=== PATIENT | female | born 1985 | race Two or more races ===

== ENCOUNTER 2018-06-24 05:51 | Inpatient (IN) ==
[2018-06-24] MEDS ORDERED: ceFAZolin 2 GM Premix Inj 2 GM/50 ML PIGGYBACK IV.SIG PRN (06:29)
--- NOTE | 2018-06-24 06:29 | P.HPOB ---
Addendum entered and electronically signed by Christina Mccoy DO 05/29/18 13:23 : RLTCS with BTL scheduled 06/24/18 Original Note: History of Present Illness Service: [facility] Requesting Physician: Enid Llamas Reason for Consult: Previous LTCS, requests repeat Primary Care Physician: No Primary Care Physician Enid Llamas ARNP Chief Complaint: Previous LTCS History of Present Illness: This 32 y/o female , EGA 39 wks presents for Repeat c section BTL. She has hx of c section x 1 for arrested descent. She denies probs with this . She also requests tubal ligation. Weeks Gestation:: 3 9 Para: 1 : 3 Total # of Miscarriage(s): 1 Review of Systems All other systems reviewed negative except as stated in HPI PMFSH - Medical / Surgical Hx Neg / Unobtainable Medical Problems Denied: Yes - Surgical History Surgical History: Surgical History (Last Updated 05/29/18 @ 13:15 by Christina Mccoy DO) H/O dilation and curettage Hx of section - Tobacco History Smoking Status: Never smoker - Alcohol History How Often Do You Have a Drink Containing Alcohol: Never - Substance Use History Substance History: No History of Abuse - Travel History History of Recent Travel: No Recent Travel in the [place] Within the Last 8 Weeks: No Recent Travel Out of the Country Within the Last 8 Weeks: No Medications and Allergies Home Medications Medication Instructions Recorded Confirmed Type PO DAILY 05/29/18 History Exam Narrative: GENERAL: Well-nourished, well-developed patient. SKIN: Warm and dry. HEAD: Normocephalic and atraumatic. EYES: No scleral icterus. No injection or drainage. ENT: No nasal drainage noted. Mucous membranes pink. Airway patent. NECK: Supple, trachea midline. No JVD. CARDIOVASCULAR: Regular rate and rhythm without murmurs, gallops, or rubs. RESPIRATORY: Breath sounds equal bilaterally. No accessory muscle use. BREASTS: Bilateral exam showed no masses , no retractions, no nipple discharge. ABDOMEN/GI: Abdomen soft, non-tender, bowel sounds present, no rebound, no guarding Gravid to [3 9] weeks size GENITOURINARY: Membranes: [intact] Uterine Contractions: [none] FHT's: Not performed today Category: [1-] Baseline: [-133] Reactive: [R-] Variability: [mod-] Decels: [0-] EXTREMITIES: No cyanosis or edema. BACK: Nontender without obvious deformity. No CVA tenderness. NEUROLOGICAL: Awake and alert. Motor and sensory grossly within normal limits. Five out of 5 muscle strength in all muscle groups. Normal speech. Assessment and Plan - Diagnosis (1) Previous section Code(s): Z98.891 - History of uterine scar from previous surgery Status: Acute (2) 39 weeks gestation of Code(s): Z3A.35 - 35 weeks gestation of Status: Acute - Plan Discussed risks of RLTCS with BTL with pt including but not limited to bleeding , infection, bowel, bladder or vessel injury, permanence of tubal ligation and failure rate of 3-10/999. She understands and wishes to schedule. RLTCS with BTL scheduled 06/24/17 at 12:30 PM. Consent reviewed and signed. Discharge Planning: F/u at regularly scheduled OB visit. Labor Prec.
[2018-06-24] MEDS ORDERED: Citric Acid/Sodium Citrate Liq 30 ML UDC PO SCH (06:30)
[2018-06-24 06:56] LABS: Baso % (Auto) 0.2 % (0.0-2.0); Eos # (Auto) 0.1 th/mm3 (0.0-0.4); Eos % (Auto) 0.6 % (0.0-4.0); Hemoglobin 12.6 gm/dL (11.6-15.3); Lymph # (Auto) 2.2 th/mm3 (1.0-4.8); Lymph % (Auto) 25.3 % (9.0-44.0); Mean Corpuscular HGB Conc 34.1 % (32.0-36.0); Mean Corpuscular Volume 93.7 fL (80.0-100.0); Mean Platelet Volume 7.6 fL (7.0-11.0); Mono # (Auto) 0.5 th/mm3 (0.0-0.9); Mono % (Auto) 5.7 % (0.0-8.0); Neut # (Auto) 5.9 th/mm3 (1.8-7.7); Neut % (Auto) 68.2 % (16.0-70.0); Platelet Count 265 th/mm3 (150-450); Red Blood Count 3.95 mil/mm3 (4.00-5.30); Red Cell Distribution Width 14.6 % (11.6-17.2); White Blood Count 8.7 th/mm3 (4.0-11.0)
[2018-06-24] MEDS ORDERED: Morphine Sulfate PF Inj 5 MG/10 ML Ampul ONE (08:04)
[2018-06-24] MEDS ORDERED: Influenza (Quadrivalent) Vaccine 0.5 ML Syringe IM ONE (10:00)
[2018-06-24 10:07] LABS: Bacteria,Urine Occasional /hpf; Bilirubin,Urine Negative (Negative); Clarity,Urine Hazy (Clear); Color,Urine Amber (Yellw/Straw); Glucose,Urine (UA) Negative (Negative); Hyaline Casts,Urine 1 /lpf (0-3); Leukocyte Esterase,Urine Moderate (Negative); Mucus,Urine Many /lpf (Occasional); Nitrite,Urine Negative (Negative); Specific Gravity,Urine 1.026 (1.002-1.035); Squamous Epithelial Cell,Urine 10 /hpf (0-5)
[2018-06-24 10:15] LABS: Urobilinogen,Urine 0.2 mg/dL (Less than 2)
--- NOTE | 2018-06-24 10:18 | P.OP ---
- Preoperative Diagnosis (1) Previous section (2) 39 weeks gestation of - Postoperative Diagnosis (1) Previous section complicating , with delivery (2) 39 weeks gestation of Date of procedure: 06/24/18 (Patient is 39-week intrauterine previous for repeat and tubal ligation tubal papers signed patient understands risk and benefits procedure she would like her tubes tied and understands that there is a 1 and 300 failure rate that procedure) Procedure: Repeat low transverse section bilateral tubal ligation Eleele style Anesthesia: spinal Surgeon: Rafael Hamlin MD Hooker Inspector: Isabel De Anda R2 Estimated blood loss (mL): 500 IV fluids (mL): 1,000 Urine output (mL): 100 Operation and Findings: Patient taken to the operating room placed supine position operating table adequate spinal anesthesia is prepped draped for abdominal surgery. A previous Pfannenstiel incision was excised out cast off. Incision carried to the fascia sharply and the fascia dissected laterally off the rectus muscle. The parietal peritoneum opened the incision extended superior and inferiorly with care used to avoid bladder injury. The bladder placed on the bladder blade and the visceral peritoneum reflected off the lower uterine segment placed on a bladder blade well. The transverse hysterotomy states in the bluntly bilaterally and a female was delivered at 8:41 AM Apgars 8/9 weight 3760gm there were no complications. Delayed cord clamping done. Cord blood obtained. Placenta manually extracted without difficulty. The uterus exteriorized and the hysterotomy closed running layer 0 chromic followed by I am getting suture same. Hemostasis achieved with stick tie. Bladder tack back up in a running suture of 2-0 Vicryl. The uterus elevated blood suctioned the cul-de-sac gutters. Bruce Placed on the right fallopian tube and avascular window seen in the mesosalpinx. A hemostat passed through and 2 sutures of catgut pulled through the window and the tube tied forward and a half with out difficulty. The intervening segment was excised and sent to pathology. Hemostasis achieved. Same was done on the left side without difficulty. The tube was ligated in the above-mentioned fashion. Hemostasis was achieved. Uterus replaced the peritoneal cavity. The parietal peritoneum was grasped with hemostats the gutters were visualized and noted to be hemostatic. The parietal peritoneum closed running layer 2-0 Vicryl. Rectus muscle reapproximated with stick ties of chromic and Vicryl. Fascia closed in running layer of 0 Vicryl. Status was achieved wash were used to irrigate well. And the space and deep tissues closed in a running layer of 3-0 plain catgut suture. Skin closed with a 3-0 Monocryl running subcuticular stitch. This may blood loss was 500 cc of no complication ,sponge and needle count correct x2 and the baby to recovery with mother and doing well.
[2018-06-24] MEDS ORDERED: Oxytocin 30 Units/500ml Premix 30 UNITS/500 ML BAG ONE (10:23)
[2018-06-24] MEDS ORDERED: Oxytocin 30 Units/500ml Premix 30 UNITS/500 ML BAG IV.SIG ONE (11:00)
[2018-06-24] MEDS ORDERED: Naloxone Inj 0.4 MG/ML Vial IV.PUSH PRN (11:23)
[2018-06-24] MEDS: Senna/Docusate Sodium 8.6/50 MG Tablet PO SCH ×2 (11:38→23:50)
[2018-06-24] MEDS ORDERED: Oxytocin 30 Units/500ml Premix 30 UNITS/500 ML BAG IV.SIG PRN (14:44)
[2018-06-24] MEDS ORDERED: ceFAZolin 2 GM Premix Inj 2 GM/50 ML PIGGYBACK IV.SIG SCH (16:00)
[2018-06-24] MEDS: ceFAZolin 2 GM Premix Inj 2 GM/50 ML PIGGYBACK IV.SIG SCH (20:23)
[2018-06-25] MEDS: ceFAZolin 2 GM Premix Inj 2 GM/50 ML PIGGYBACK IV.SIG SCH (04:09)
[2018-06-25 06:26] LABS: Baso % (Auto) 0.2 % (0.0-2.0); Eos % (Auto) 0.2 % (0.0-4.0); Hematocrit 28.8 % (35.0-46.0); Hemoglobin 9.7 gm/dL (11.6-15.3); Lymph # (Auto) 1.7 th/mm3 (1.0-4.8); Lymph % (Auto) 12.5 % (9.0-44.0); Mean Corpuscular HGB Conc 33.5 % (32.0-36.0); Mean Corpuscular Hemoglobin 31.6 pg (27.0-34.0); Mean Corpuscular Volume 94.2 fL (80.0-100.0); Mean Platelet Volume 7.4 fL (7.0-11.0); Mono # (Auto) 0.7 th/mm3 (0.0-0.9); Mono % (Auto) 5.1 % (0.0-8.0); Neut # (Auto) 11.4 th/mm3 (1.8-7.7); Platelet Count 218 th/mm3 (150-450); Red Blood Count 3.06 mil/mm3 (4.00-5.30); White Blood Count 13.9 th/mm3 (4.0-11.0)
--- NOTE | 2018-06-25 08:27 | P.PNOB ---
Subjective Post op day: 1 Interval history: Patient seen and examined bedside this morning. Patient doing well with no acute complaints overnight. Denies any chest pain/shortness of breath/ dizziness. No nausea/vomiting with clear fluids. Patient is hungry and will advance to full diet this morning. Nichols has been removed and patient has urinated twice with no difficulties. No fever/chills. No calf tenderness. Objective Vital Signs/I&O: Vital Signs 06/24/18 09:45 06/24/18 10:00 06/24/18 10:15 Temperature 97.6 F Pulse Rate 18 L 97 H 89 Respiratory Rate 8 L 18 20 Blood Pressure 113/66 125/58 L 111/55 L 06/24/18 10:30 06/24/18 10:45 06/24/18 16:00 Temperature 97.8 F 98.5 F Pulse Rate 85 88 113 H Respiratory Rate 20 20 18 Blood Pressure 122/56 L 112/54 L 125/73 06/24/18 20:00 06/24/18 23:54 06/25/18 03:49 Temperature 98.8 F 98.1 F 98.3 F Pulse Rate 90 102 H 90 Respiratory Rate 18 18 18 Blood Pressure 114/75 110/69 101/64 Intake & Output 06/24/18 06/25/18 06/25/18 18:59 06:59 18:59 Intake Total 1050 / 1050 50 / 50 Balance 1050 / 1050 50 / 50 Weight 77.111 kg Intake: IV 1050 / 1050 50 / 50 LR 1000 mL Inj 1,000 ML @ 150 1000 / 1000 mls/hr IV.CONT .Q6H40M [facility] Rx#: [id number] Ancef 2 GM Premix Inj 2 gm In 50 / 50 50 / 50 50 ml @ 100 mls/hr IV.SIG Q8H [facility] Rx#:[id number] Other: Weight On Admission 77.111 kg Result Diagrams: 06/25/18 06:06 Objective Remarks: GENERAL: Well-nourished, well-developed patient. CARDIOVASCULAR: Regular rate and rhythm without murmurs, gallops, or rubs. RESPIRATORY: Breath sounds equal bilaterally. No accessory muscle use. ABDOMEN/GI: Abdomen soft, non-tender, bowel sounds present. Incision: Clean, dry and intact. dressing in place, no drainage. Fundus: Firm, non-tender at umbilicus. GENITOURINARY: Light to moderate bleeding. EXTREMITIES: No cyanosis or edema, non-tender, without signs of DVT. Medications and IVs: Active Medications Citric Acid/Sodium Citrate (Sodium Citrate/Citric Acid Liq) 30 ml PO MACHINERY MECHANIC TYLER Stop: 06/28/18 06:29 Diphenhydramine HCl (Benadryl Inj) 25 mg IV.PUSH Q6H PRN PRN Reason: MILD TO MODERATE ITCHING Stop: 06/25/18 11:22 Diphenhydramine HCl (Benadryl) 50 mg PO Q6H PRN PRN Reason: MILD TO MODERATE ITCHING Stop: 06/25/18 11:22 Diphtheria/Pertussis/Tetanus Vacc (Boostrix Vaccine Inj) 0.5 ml IM .ONCE ONE Stop: 06/25/18 16:01 Cefazolin Sodium/Dextrose (Ancef 2 Gm Premix Inj) 2 gm in 50 mls @ 100 mls/hr IV.SIG MACHINERY MECHANIC PRN PRN Reason: ON-CALL Stop: 06/28/18 06:28 Last Infusion: 06/24/18 09:56 Dose: Infused Lactated Ringer's (Lr 1000 Ml Inj) 1,000 mls @ 100 mls/hr IV.CONT .Q10H TYLER Stop: 06/25/18 10:43 Last Admin: 06/24/18 19:52 Dose: 100 mls/hr Oxytocin (Pitocin 30 Units/Ns 500 Ml Premix) 30 units in 500 mls @ 100 mls/hr IV.SIG UNSCH PRN PRN Reason: Heavy bleeding Ibuprofen (Motrin) 800 mg PO Q8H PRN PRN Reason: cramping Last Admin: 06/25/18 01:30 Dose: 800 mg Ketorolac Tromethamine (Toradol Inj) 30 mg IM Q6H PRN PRN Reason: SEE LABEL COMMENTS Stop: 06/29/18 10:29 Last Admin: 06/24/18 18:23 Dose: 30 mg Measles/Mumps/Rubella Vaccine Live (M-M-R Ii Vaccine Inj) 0.5 ml SQ .ONCE ONE Stop: 06/25/18 16:01 Miscellaneous Information ([facility] Nursing Information) 1 each OTHER UNSCH PRN PRN Reason: SEE LABEL COMMENTS Stop: 06/25/18 11:22 Miscellaneous Information ([facility] Nursing Information) 1 each OTHER UNSCH PRN PRN Reason: SEE LABEL COMMENTS Stop: 06/25/18 11:22 Naloxone HCl (Narcan Inj) 0.4 mg IV.PUSH UNSCH PRN PRN Reason: SEE LABEL COMMENTS Stop: 06/25/18 11:22 Ondansetron HCl (Zofran Inj) 4 mg IV.PUSH Q6H PRN PRN Reason: NAUSEA OR VOMITING Oxycodone/Acetaminophen (Percocet 5/325 Mg) 1 tab PO Q4H PRN PRN Reason: PAIN SCALE 3 TO 5 Last Admin: 06/24/18 23:50 Dose: 1 tab Oxycodone/Acetaminophen (Percocet 5/325 Mg) 2 tab PO Q4H PRN PRN Reason: PAIN SCALE 6 TO 10 Last Admin: 06/25/18 04:07 Dose: 2 tab Senna/Docusate Sodium (Alie-Colace) 2 tab PO Q12H [facility]YLER Last Admin: 06/24/18 23:50 Dose: 2 tab Sodium Chloride (Ns Flush) 2 ml IV.FLUSH BID [facility] Last Admin: 06/24/18 21:00 Dose: Not Given Sodium Chloride (Ns Flush) 2 ml IV.FLUSH PRN PRN PRN Reason: FLUSH AFTER USING IV ACCESS Assessment and Plan - Diagnosis (1) delivery delivered Code(s): O82 - Encounter for delivery without indication Status: Acute - Plan Patient was counseled to do 6 weeks of pelvic rest. Patient was counseled to follow up in 6 weeks. Patient requested follow-up. -- VSS -- H&H stable, asymptomatic -- WBC stable, asymptomatic --Continue routine care --Motrin and Percocet when necessary for pain --Encourage OOB --Pelvic rest for 6 weeks will need follow-up appointment at that time. --Contraception: s/p BTL --Anticipate discharge tomorrow - Attending Attestation The exam, history, and the medical decision-making described in the above note were completed with the assistance of the resident physician. I reviewed and agree with the findings presented. I attest that I had a [id number] encounter with the patient on the same day, and personally performed and documented my assessment and findings in the medical record.
[2018-06-25] MEDS: Senna/Docusate Sodium 8.6/50 MG Tablet PO SCH ×2 (10:25→22:30)
[2018-06-25] MEDS ORDERED: Diphtheria/Tetanus/Pertussis Vaccine Inj 0.5 ML Syringe IM ONE (16:00)
[2018-06-25] MEDS ORDERED: Measles/Mumps/Rubella Vaccine Inj 0.5 ML Vial SQ ONE (16:00)
--- NOTE | 2018-06-26 08:19 | P.PNOB ---
Subjective Post op day: 2 Interval history: Patient seen and examined bedside this morning. Patient doing well with no acute complaints overnight. Minimal lochia. Denies any chest pain/shortness of breath/dizziness. No nausea/vomiting. No fever/chills. No calf tenderness. Eating and drinking without difficulty and ambulating appropriately. Planning on . Objective Vital Signs/I&O: Vital Signs 06/25/18 09:15 06/25/18 20:00 Temperature 98.3 F Pulse Rate 74 Respiratory Rate 5 L 18 Blood Pressure 113/76 Result Diagrams: 06/25/18 06:06 Objective Remarks: GENERAL: Well-nourished, well-developed patient. CARDIOVASCULAR: Regular rate and rhythm without murmurs, gallops, or rubs. RESPIRATORY: Breath sounds equal bilaterally. No accessory muscle use. ABDOMEN/GI: Abdomen soft, non-tender, bowel sounds present. Incision: Clean, dry and intact. Fundus: Firm, non-tender at umbilicus. GENITOURINARY: Light to moderate bleeding. EXTREMITIES: No cyanosis or edema, non-tender, without signs of DVT. Medications and IVs: Active Medications Citric Acid/Sodium Citrate (Sodium Citrate/Citric Acid Liq) 30 ml PO TELEPHONE INSTRUMENT SUPERVISOR TYLER Stop: 06/28/18 06:29 Cefazolin Sodium/Dextrose (Ancef 2 Gm Premix Inj) 2 gm in 50 mls @ 100 mls/hr IV.SIG TELEPHONE INSTRUMENT SUPERVISOR PRN PRN Reason: ON-CALL Stop: 06/28/18 06:28 Last Infusion: 06/24/18 09:56 Dose: Infused Oxytocin (Pitocin 30 Units/Ns 500 Ml Premix) 30 units in 500 mls @ 100 mls/hr IV.SIG UNSCH PRN PRN Reason: Heavy bleeding Ibuprofen (Motrin) 800 mg PO Q8H PRN PRN Reason: cramping Last Admin: 06/26/18 04:26 Dose: 800 mg Ketorolac Tromethamine (Toradol Inj) 30 mg IM Q6H PRN PRN Reason: SEE LABEL COMMENTS Stop: 06/29/18 10:29 Last Admin: 06/24/18 18:23 Dose: 30 mg Ondansetron HCl (Zofran Inj) 4 mg IV.PUSH Q6H PRN PRN Reason: NAUSEA OR VOMITING Oxycodone/Acetaminophen (Percocet 5/325 Mg) 1 tab PO Q4H PRN PRN Reason: PAIN SCALE 3 TO 5 Last Admin: 06/24/18 23:50 Dose: 1 tab Oxycodone/Acetaminophen (Percocet 5/325 Mg) 2 tab PO Q4H PRN PRN Reason: PAIN SCALE 6 TO 10 Last Admin: 06/26/18 07:38 Dose: 2 tab Senna/Docusate Sodium (Alie-Colace) 2 tab PO Q12H [facility] Last Admin: 06/25/18 22:30 Dose: 2 tab Sodium Chloride (Ns Flush) 2 ml IV.FLUSH BID [facility] Last Admin: 06/25/18 22:42 Dose: Not Given Sodium Chloride (Ns Flush) 2 ml IV.FLUSH PRN PRN PRN Reason: FLUSH AFTER USING IV ACCESS Assessment and Plan - Diagnosis (1) delivery delivered Code(s): O82 - Encounter for delivery without indication Status: Acute - Plan Patient was counseled to do 6 weeks of pelvic rest. Patient was counseled to follow up in 6 weeks for post check and 1 week for incision check. Patient requested follow-up. -- VSS --Continue routine care --Motrin and Percocet when necessary for pain --Encourage OOB --Pelvic rest for 6 weeks will need follow-up appointment at that time. --Contraception: s/p BTL --Anticipate discharge possibly today or tomorrow
[2018-06-26 09:17] VITALS: BP 112/81; PULSE 99; RESP 16; TEMP 97.3
[2018-06-26] MEDS: Senna/Docusate Sodium 8.6/50 MG Tablet PO SCH (11:55)
== END 2018-06-26 13:35 | disposition home or self-care (01) | DRG 785 ==
LOC: H2E 05:51 → H1EA 07:58
PROVIDERS: ADMIT Obstetrics & Gynecology Maternal & Fetal Medicine; ATTEND Obstetrics & Gynecology Maternal & Fetal Medicine
CPT/HCPCS: 59025; 81001; 85025; 86850; 86900; 86901; 88302; 90658; 90686; 90715; J0690; J1885; J2274; J2590; J7120; Q2038